=== PATIENT | female | born 1965 | race Hispanic/Latino ===

== ENCOUNTER 2016-12-01 19:13 | Emergency (ER) | payer OTHER, MEDICARE ==
[2016-12-01] MEDS ORDERED: TYLENOL ONE (20:02)
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
[2016-12-02] MEDS ORDERED: DELTASONE PO ONE (01:06)
[2016-12-02] MEDS ORDERED: NORCO 5/325 PO ONE (01:06)
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
[2016-12-02 01:44] VITALS: BP 112/69
== END 2016-12-02 02:31 | disposition home or self-care (01) ==
LOC: EDSEX → ED 19:13
DX: S33.5XXA Sprain of ligaments of lumbar spine, initial encounter (principal); M19.90 Unspecified osteoarthritis, unspecified site; V89.2XXA Person injured in unspecified motor-vehicle accident, traffic, initial encounter; Y92.488 Other paved roadways as the place of occurrence of the external cause; Y93.89 Activity, other specified; Y99.8 Other external cause status
CPT/HCPCS: 72131; 99283; J7512

== ENCOUNTER 2017-02-10 11:17 | Emergency (ER) | payer MEDICARE, OTHER ==
[2017-02-10] MEDS ORDERED: BOOSTRIX IM ONE (11:22)
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
[2017-02-10 11:23] VITALS: BP 135/88
[2017-02-10] MEDS ORDERED: NORCO 5/325 PO ONE (12:44)
[2017-02-10] MEDS ORDERED: TRIPLE ANTIBIOTIC TP ONE (12:46)
[2017-02-10] MEDS ORDERED: DERMOPLAST TP ONE (12:47)
[2017-02-10] MEDS ORDERED: MOTRIN PO ONE (12:54)
--- NOTE | 2017-02-10 13:16 | XRay Report ---
LEFT HAND, 3 views: History: Injury, cut by glass. The bony architecture is intact. Bony alignment is normal. No soft tissue abnormalities are seen. The joint spaces appear preserved. No radiopaque foreign body is detected on x-ray. IMPRESSION: Normal left hand.
--- NOTE | 2017-02-10 13:58 | Emergency Department Report ---
Entered by CORBIN FIGUEROA, acting as scribe for KRISTINE ORO PA. - General Chief Complaint: Wound/Laceration Stated Complaint: BROKEN GLASS CUT ON ARM Time Seen by Provider: 02/10/17 11:21 Source: patient Mode of arrival: Ambulatory Limitations: No Limitations - History of Present Illness Initial Comments: 51 y/o female with no PMHx, present with left thumb laceration flap that occurred 2 hours [employer]. She notes accidentally cutting her finger while washing dishes at home. She states her tetanus is not UTD. No additional Sx. -: This morning (2 hours [employer]) Location: other (left thumb) Extremity Location: Left: Hand (left thumb laceration) 1 - 2cm diameter laceration Place: home Patient Tetanus UTD: Yes Context: accidental (pt was washing dishes) Associated Symptoms: pain. denies: loss of feeling/numbness, suspect foreign body present, unable to move injured part, weakness followed by dizziness, nausea/vomiting, fever Treatments Prior to Arrival: bandage - Related Data Previous Rx's Medication Instructions Recorded Last Taken Type Cyclobenzaprine [Flexeril] 10 mg PO TID PRN #20 tablet 12/02/16 Unknown Rx Cephalexin [Keflex] 500 mg PO Q12HR #10 cap 02/10/17 Unknown Rx HYDROcodone/APAP 5-325 [Bonduel 1 each PO ONCE #6 tablet 02/10/17 Unknown Rx 5-325 mg TAB] Ibuprofen [Motrin 800 MG tab] 800 mg PO Q8HR PRN #30 tablet 02/10/17 Unknown Rx Allergies Allergy/AdvReac Type Severity Reaction Status Date / Time nitrofurantoin Allergy Angioedema Verified 02/10/17 11:24 macrocrystalline [From Macrodantin] ED Review of Systems Comment: All other systems reviewed and negative Constitutional: denies: chills, fever Respiratory: denies: cough, shortness of breath Cardiovascular: denies: chest pain Gastrointestinal: denies: abdominal pain, nausea, vomiting Skin: other (2cm in diameter left thumb laceration flap) ED Past Medical Hx - Past Medical History Hx Arthritis: Yes Additional medical history: spinal cord injury, - Surgical History Additional Surgical History: spinal surgery X2 2004(crushed disc) - Social History Smoking Status: Never Smoker Substance Use Type: Alcohol - Medications Home Medications: Home Medications Medication Instructions Recorded Confirmed Last Taken Type Cyclobenzaprine [Flexeril] 10 mg PO TID PRN #20 tablet 12/02/16 Unknown Rx Cephalexin [Keflex] 500 mg PO Q12HR #10 cap 02/10/17 Unknown Rx HYDROcodone/APAP 5-325 [Bonduel 1 each PO ONCE #6 tablet 02/10/17 Unknown Rx 5-325 mg TAB] Ibuprofen [Motrin 800 MG tab] 800 mg PO Q8HR PRN #30 tablet 02/10/17 Unknown Rx ED Physical Exam - General Limitations: No Limitations - Other Other exam information: GENERAL: Patient is alert and oriented x 3. No apparent distress, normal gait, atraumatic. HEAD: Head is normocephalic and atraumatic. LUNGS: Symmetrical with respiration, no wheezing, no rales, no crackles, CTAB HEART: Regular rate and rhythm with normal S1/S2 present. No murmurs, rubs, or gallops. Capillary refill brisk. EXTREMITIES/MUSCULOSKELETAL: No cyanosis, clubbing, rash, lesions or edema. Full ROM bilaterally. UE/LE Pulses 2+ bilaterally. LE and UE 5+ strength bilaterally SKIN: Warm and dry. No lesions, ulceration or induration present. 2cm in diameter laceration flap to the left thumb. Joints and bones intact. NEUROLOGIC: No focal deficit., Cranial nerves II - XII are grossly intact. No loss of sensation. No loss of sensation in fingers. PSYCHIATRIC: Mood is congruent with affect. Denies suicidal or homicidal ideations ED Course Vital Signs 02/10/17 11:21 Temperature 98.3 F Pulse Rate 63 Respiratory 18 Rate Blood Pressure 135/88 O2 Sat by Pulse 100 Oximetry ED Medical Decision Making - Medical Decision Making 51 y/o female presents with left thumb laceration. ED course: Patient received Motrin in the ED. Patient is interactive during exam. Strength of the hand ordered and taken. X -ray of the hand shows normal hand Laceration sprayed with Dermaplast- let sit for 1 minute 1-2 cm circumflex laceration to right side of forehead properly cleaned with saline and Betadine. She received tetanus booster. Laceration was sealed with Surgicel topical skin adhesive Laceration was closed with 5 Steri-Strips. And sterilely draped Patient tolerated procedure well. Discussed with parent to keep wound dry for the next 72 hours. Discussed the follow up with primary care doctor. Vital signs are stable patient is in no acute distress patient can be discharged home with instructions Discussed with patient to follow up with PCP as referred, and to return to the ED if symptoms return or worsen. Patient states understanding and will follow instructions. Pt verbally states understanding and will comply to follow up. ED Disposition Clinical Impression: Finger laceration Qualifiers: Encounter type: initial encounter Finger: thumb Damage to nail status: without damage Foreign body presence: without foreign body Laterality: left Qualified Code(s): S61.012A - Laceration without foreign body of left thumb without damage to nail, initial encounter Disposition: TO HOME OR SELFCARE Is pt being admited?: No Does the pt Need Aspirin: No Condition: Stable Instructions: Laceration (ED), Skin Adhesive Care (ED) Prescriptions: Cephalexin [Keflex] 500 mg PO Q12HR #10 cap HYDROcodone/APAP 5-325 [Bonduel 5-325 mg TAB] 1 each PO ONCE #6 tablet Ibuprofen [Motrin 800 MG tab] 800 mg PO Q8HR PRN #30 tablet PRN Reason: Pain Referrals: PRIMARY CARE,MD [Primary Care Provider] - 3-[address] [facility] [Outside] - 3-5 Days [facility] [Outside] - 3-5 Days [facility] [Outside] - 3-5 Days Forms: Work/School Release Form(ED) Time of Disposition: 13:53 This documentation as recorded by the CAROLINA mercado RYAN,accurately reflects the service I personally performed and the decisions made by ,KRISTINE ORO PA.
== END 2017-02-10 13:54 | disposition home or self-care (01) ==
LOC: ED 11:17
DX: S61.412A Laceration without foreign body of left hand, initial encounter (principal); W25.XXXA Contact with sharp glass, initial encounter; Y93.G1 Activity, food preparation and clean up; Y92.000 Kitchen of unspecified non-institutional (private) residence as the place of occurrence of the external cause; Y99.8 Other external cause status
CPT/HCPCS: 90471; 90715; 99283; A6250